=== PATIENT | female | born 1955 | race Two or more races ===

== ENCOUNTER 2022-09-15 17:26 | Emergency (ER) | payer OTHER ==
[~2022-09-15] VITALS: Ht 160 cm; Wt 91.0 kg
[2022-09-15 17:46] VITALS: BP 138/97
== END 2022-09-15 23:16 | disposition home or self-care (01) ==
LOC: EDBD 17:26 → ER 17:26
DX: M06.812 Other specified rheumatoid arthritis, left shoulder (principal); M54.2 Cervicalgia; M79.18 Myalgia, other site; V43.52XA Car driver injured in collision with other type car in traffic accident, initial encounter; Y93.89 Activity, other specified; Y92.488 Other paved roadways as the place of occurrence of the external cause; Y99.8 Other external cause status
CPT/HCPCS: 70450; 71250; 72125; 73020; 73130; 74176